=== PATIENT | female | born 2000 | race Caucasian/White ===

== ENCOUNTER 2021-04-28 19:01 | Emergency (ER) | payer BC, OTHER ==
[~2021-04-28] VITALS: Ht 160 cm; Wt 81.8 kg
[2021-04-28] MEDS ORDERED: ONDANSETRON 4MG/2ML VIAL IV ONE (21:05)
[2021-04-28] MEDS ORDERED: NS 1,000 ML IV ONE (21:05)
[2021-04-28 21:10] LABS: BASO % 0.1 % (0.0-1.0); HEMATOCRIT 44.9 % (36.0-47.0); HEMOGLOBIN 14.8 g/dl (12.0-15.5); LYMPH # 0.6 10^3/uL (1.5-5.0); MEAN CORPUSCULAR HEMOGLOBIN 30.1 pg (27.0-33.0); MEAN CORPUSCULAR VOLUME 91.4 fl (80.0-96.0); MONO # 0.2 10^3/uL (0.0-0.8); MONO % 1.3 % (2.0-8.0); NEUTROPHILS # 14.8 10^3/uL (1.5-8.5); PLATELET COUNT, AUTOMATED 430 10^3/uL (150-450); RED BLOOD COUNT 4.91 10^6/uL (4.00-5.40); WHITE BLOOD COUNT 15.7 10^3/uL (4.0-10.0)
[2021-04-28 21:39] LABS: ALBUMIN 4.2 GM/DL (3.2-5.2); BILIRUBIN,DIRECT 0.3 MG/DL (0.0-0.2); BILIRUBIN,TOTAL 0.8 MG/DL (0.2-1.0); TOTAL PROTEIN 7.7 GM/DL (6.4-8.2)
[2021-04-28] MEDS ORDERED: HALOPERIDOL 5MG/ML VIAL (J1630 PER 1) IV ONE (21:45)
[2021-04-28] MEDS ORDERED: ISOVUE-370 76% 100ML VIAL As Ordered ONE (22:48)
--- NOTE | 2021-04-29 00:42 | REPVR ---
PROCEDURE INFORMATION: Exam: CT Abdomen And Pelvis With Contrast Exam date and time: 04/28/2021 11:04 PM Age: 20 years old Clinical indication: Abdominal pain; Generalized; Additional info: Abd pain R/O appy TECHNIQUE: Imaging protocol: Computed tomography of the abdomen and pelvis with contrast. Radiation optimization: All CT scans at this facility use at least one of these dose optimization techniques: automated exposure control; mA and/or kV adjustment per patient size (includes targeted exams where dose is matched to clinical indication); or iterative reconstruction. Contrast material: ISO; Contrast volume: 100 ml; Contrast route: INTRAVENOUS (IV); COMPARISON: No relevant prior studies available. FINDINGS: Limitations: Limited by motion artifact. Liver: Normal. No mass. Gallbladder and bile ducts: Normal. No calcified stones. No ductal dilation. Pancreas: Normal. No ductal dilation. Spleen: Normal. No splenomegaly. Adrenal glands: Normal. No mass. Kidneys and ureters: Normal. No hydronephrosis. Stomach and bowel: Colon is diffusely collapsed and thickened. No abnormal bowel dilatation. Negative for colonic diverticulitis. Appendix: Appendix is normal. Intraperitoneal space: Small free fluid in the pelvis. No free air. Vasculature: Unremarkable. No abdominal aortic aneurysm. Lymph nodes: Unremarkable. No enlarged lymph nodes. Urinary bladder: Unremarkable as visualized. Reproductive: IUD in the uterus in satisfactory position. Bones/joints: At L5-S1, there is a 7 mm central disc protrusion with severe spinal stenosis. Soft tissues: Unremarkable. IMPRESSION: 1. Appendix is unremarkable. 2. Colon is diffusely collapsed and thickened. Suspicious for colitis. 3. Small free fluid in the pelvis. 4. IUD in the uterus. Electronically signed by: Dalton Briones On 04/29/2021 00:41:42 AM
[2021-04-29] MEDS ORDERED: MIRA3350 PO (00:52)
[2021-04-29] MEDS ORDERED: CAPS0.022 TOP (00:52)
[2021-04-29] MEDS ORDERED: ONDA4TAB6 PO (00:52)
[2021-04-29 00:59] VITALS: BP 119/64
== END 2021-04-29 01:00 | disposition home or self-care (01) ==
LOC: M ED 19:01
DX: F12.29 Cannabis dependence with unspecified cannabis-induced disorder (principal); R11.2 Nausea with vomiting, unspecified
CPT/HCPCS: 36415; 74177; 80047; 80076; 81001; 83690; 84702; 85025; 96361; 96374; 96375; 99284; J1630; J2405; Q9967